=== PATIENT | male | born 1950 | race Caucasian/White ===

== ENCOUNTER 2024-04-11 09:34 | Outpatient (CLI) | payer MEDICARE, OTHER ==
[2024-04-11 12:05] LABS: #Basophils 0.03 10x3/uL (0.0-0.2); %Basophils 0.4 % (0.0-1.0); %Eosinophils 2.2 % (0.0-10.0); %Lymphocytes 24.9 % (21.0-51.0); %Neutrophils 65.1 % (42.0-75.0); Hematocrit 45.1 % (42.0-52.0); Hemoglobin 14.7 g/dL (14.0-18.0); Mean Corpuscular HGB CONC 32.6 g/dL (32.0-36.0); Mean Corpuscular Volume 85.9 fL (78.0-98.0); Mean Platelet Volume 10.4 fL (7.4-10.4); Platelet Count 197 10x3/uL (130-400); Red Blood Cell (RBC) Count 5.25 mill/uL (4.70-6.10)
[2024-04-11 12:26] LABS: ALT (SGPT) 14 U/L (8-55); AST (SGOT) 18 U/L (5-34); Albumin 3.8 g/dL (3.4-4.8); Alkaline Phosphatase 57 U/L (40-110); Anion Gap 11 mmol/L (10-20); BUN (Urea Nitrogen) 19 mg/dL (8.4-25.7); Bilirubin, Total 0.5 mg/dL (0.2-1.2); Calc. Creatinine Clearance 0 mL/min (70-130); Calcium 9.5 mg/dL (7.8-10.44); Carbon Dioxide 27 mmol/L (23-31); Chloride 104 mmol/L (98-107); Estimated GFR 94; Globulin 3.4 g/dL (2.4-3.5); Glucose 89 mg/dL (83-110); Potassium 3.7 mmol/L (3.5-5.1); Protein, Total 7.2 g/dL (5.8-8.1); Sodium 138 mmol/L (136-145)
[2024-04-11 12:28] LABS: Cardiac Risk 3.2 (Less than 4.5)
== END 2024-04-11 09:35 | disposition home or self-care (01) ==
LOC: LABBT 09:34
PROVIDERS: ATTEND Internal Medicine Cardiovascular Disease
DX: Z01.812 Encounter for preprocedural laboratory examination (principal); R94.39 Abnormal result of other cardiovascular function study
CPT/HCPCS: 80053; 80061; 85025

== ENCOUNTER 2024-04-13 07:03 | Day surgery (SDC) | payer MEDICARE, OTHER ==
[2024-04-11 10:18] VITALS: BMI 30.4
[2024-04-13] MEDS ORDERED: Heparin 10,000 UNITS/ 10 ML VIAL ONE (08:05)
[2024-04-13] MEDS ORDERED: Nitroglycerin 50 MG/250 ML BOT 250 ML ONE (08:05)
[2024-04-13] MEDS ORDERED: Verapamil 5 MG/2 ML VIAL ONE (09:07)
[2024-04-13] MEDS ORDERED: Midazolam HCl 2 mg/2 ml Vial ONE (09:31)
[2024-04-13] MEDS ORDERED: fentaNYL 50 mcg/mL 1 mL Vial ONE (09:31)
[2024-04-13] MEDS ORDERED: Iopamidol 370 76% 100 ML VIAL ONE (11:33)
== END 2024-04-13 13:30 | disposition home or self-care (01) ==
LOC: CCL 07:03
PROVIDERS: ATTEND Internal Medicine Cardiovascular Disease
PROC: 4A023N7 Measurement of Cardiac Sampling and Pressure, Left Heart, Percutaneous Approach (ICD-10-PCS; principal; 2024-04-13)
DX: R94.31 Abnormal electrocardiogram [ECG] [EKG] (principal); E11.9 Type 2 diabetes mellitus without complications; E78.2 Mixed hyperlipidemia; E66.9 Obesity, unspecified; Z68.30 Body mass index [BMI] 30.0-30.9, adult; Z79.84 Long term (current) use of oral hypoglycemic drugs; Z79.899 Other long term (current) drug therapy
CPT/HCPCS: 93458; C1769; C1894; J1644; J2250; J3010; 99152; Q9967